=== PATIENT | female | born 1960 | race Two or more races ===

== ENCOUNTER 2018-06-29 08:07 | Day surgery (SDC) | payer MEDICAID ==
[2018-06-29] VITALS (13 sets, daily range): BP systolic 118–144; BP diastolic 70–88; PULSE 96–111; RESP 12–20
[~2018-06-29 08:07] MED LIST: SEVOFLURANE 15 MIN ONE
[2018-06-29] MEDS ORDERED: SOD CHLORIDE 0.9% 1,000 ML IV SCH (09:00)
[2018-06-29] MEDS ORDERED: CEFAZOLIN 2 GM/50 ML (PMX) 50 ML IVPB ONE (09:00)
[2018-06-29] MEDS ORDERED: GLIP10TA14 PO (10:52)
[2018-06-29] MEDS ORDERED: METF100010 PO (10:52)
[2018-06-29] MEDS ORDERED: LORA10TA3 PO (10:53)
[2018-06-29] MEDS ORDERED: ATOR20TA38 PO (10:53)
[2018-06-29] MEDS ORDERED: INSU100I27 SQ (10:53)
[2018-06-29] MEDS ORDERED: DOCU100T PO (10:54)
[2018-06-29] MEDS ORDERED: SITA100T11 PO (10:55)
[2018-06-29] MEDS ORDERED: LISI10TA2 PO (10:55)
[2018-06-29] MEDS ORDERED: LEVO50TA71 PO (10:55)
--- NOTE | 2018-06-29 14:13 | PREAC ---
Date/Time of Note Date/Time of Note DATE: 06/29/18 TIME: 14:13 Anesthesia Eval and Record Evaluation Time Pre-Procedure Interview DATE: 06/29/18 TIME: 14:13 Age 58 Sex female NPO: 8 hrs Preoperative diagnosis Left breast ductal CA in situ Planned procedure Left needle directed partial mastectomy Past Medical History Past Medical History: Includes Cardio: HTN, Dyslipidemia Endo: Diabetes, Hypothyroid Surgery & Anesthesia Issues No known issue Meds Anticoagulation: No Beta Michell within 24 hr: No Reason Beta Michell not given: Pt. not on B-Michell Reported Medications Lisinopril* (Lisinopril*) 10 Mg Tablet, 10 MG PO DAILY, #30 TAB 06/29/18 Sitagliptin* (Januvia*) 100 Mg Tablet, 100 MG PO DAILY, #30 TAB 06/29/18 Levothyroxine Sodium* (Levoxyl*) 50 Mcg Tablet, 50 MCG PO BEFORE BREAKFAST, #30 TAB 06/29/18 Docusate Sodium* (Dok*) 100 Mg Tablet, 100 MG PO BID, #60 CAP 06/29/18 Atorvastatin Calcium* (Atorvastatin Calcium*) 20 Mg Tablet, 20 MG PO QHS, #30 TAB 06/29/18 Loratadine* (Loratadine*) 10 Mg Tablet, 10 MG PO DAILY, #30 TAB 06/29/18 Insulin Detemir (Levemir Flextouch) 100 Unit/1 Ml Insuln.pen, 20 UNIT SQ QHS, EA 06/29/18 Metformin Hcl* (Metformin Hcl*) 1,000 Mg Tablet, 1000 MG PO WITH BREAKFAST DINNE, #60 TAB 06/29/18 Glipizide* (Glipizide*) 10 Mg Tablet, 20 MG PO BID, TAB 06/29/18 Current Medications Sodium Chloride 1,000 ml @ 75 mls/hr [id number] IV ; Start 06/29/18 at 09:00; Stop 06/29/18 at 22:19 Meds reviewed: Yes Allergies Coded Allergies: No Known Allergy (Unverified , 06/29/18) Allergies Reviewed: Yes Labs/Studies Labs Reviewed: Reviewed by anesthesiologist test: Negative Pre-procedure Exam Last vitals Vital Signs Date Temp Pulse Resp B/P (MAP) Pulse Ox O2 O2 Flow FiO2 Time Delivery Rate 06/29/18 97.2 111 18 128/73 100 Room Air 11:55 (91) Airway: Adequate mouth opening Mallampati: Mallampati I Teeth: Normal Lung: Normal Heart: Normal ASA Physical Status ASA physical status: 2 Emergency: None Planned Anesthetic General/MAC: LMA Planned Pain Management Parenteral pain med Pre-operative Attestations Prior to commencing anesthesia and surgery, the patient was re-evaluated, there was verification of: *The patient's identity *The results of appropriate recent lab work and preoperative vital signs *The above evaluation not changing prior to induction *Anesthetic plan, risk benefits, alternative and complications discussed with patient/family; questions answered; patient/family understands, accepts and wishes to proceed. OWEN ALATORRE MD Jun 29, 2018 14:13
[2018-06-29] MEDS ORDERED: LIDOCAINE 2% (SDV) 5 ML INJ ONE (14:25)
[2018-06-29] MEDS ORDERED: PROPOFOL 20 ML ONE (14:25)
[2018-06-29] MEDS ORDERED: CEFAZOLIN 1 GM INJ ONE (14:25)
[2018-06-29] MEDS ORDERED: MEPERIDINE 100 MG INJ ONE (14:25)
[2018-06-29] MEDS ORDERED: METOCLOPRAMIDE 10 MG INJ ONE (14:26)
[2018-06-29] MEDS ORDERED: ONDANSETRON 4 MG INJ ONE (14:26)
[2018-06-29] MEDS ORDERED: MIDAZOLAM 1 MG/ML 2 ML INJ IV PRN (15:00)
[2018-06-29] MEDS ORDERED: MEPERIDINE 25 MG INJ IV PRN (15:00)
[2018-06-29] MEDS ORDERED: METOCLOPRAMIDE 10 MG INJ IV PRN (15:00)
[2018-06-29] MEDS ORDERED: EPHEDrine SULFATE 50 MG/5 ML SYG IV PRN (15:00)
[2018-06-29] MEDS ORDERED: FENTAnyl 50 MCG/ML VIAL IV PRN ×3 (15:00)
[2018-06-29] MEDS ORDERED: hydrALAzine 20 MG INJ IV PRN (15:00)
[2018-06-29] MEDS ORDERED: LABETALOL HCL 20MG INJ IV PRN (15:00)
[2018-06-29] MEDS ORDERED: HYDROmorphONE 1 MG/5 ML IV SYRINGE IV PRN ×3 (15:00)
[2018-06-29] MEDS ORDERED: ONDANSETRON 4 MG INJ IV PRN (15:00)
[2018-06-29] MEDS ORDERED: DIPHENHYDRAMINE 50 MG INJ IV PRN (15:00)
[2018-06-29] MEDS ORDERED: OXYCODONE/ACETAMINOPHEN (5/325) TAB PO PRN ×2 (15:00)
--- NOTE | 2018-06-29 15:12 | SIPON ---
Date/Time of Note Date/Time of Note DATE: 06/29/18 TIME: 15:11 Operative Report Preoperative Diagnosis DCIS right breast Postoperative Diagnosis Same Operation/Procedure Performed Right needle directed partial mastectomy Surgeon see signature line activities assistant Dr Peters Anesthesia: general Estimated blood loss: 10 - 50 ml's Transfusion Required none Specimen Right partial mastectomy specimen Grafts/Implants none Complications none DEEP ASH MD Jun 29, 2018 15:12
--- NOTE | 2018-06-29 15:21 | OPR ---
DATE OF OPERATION: 06/29/2018 PREOPERATIVE DIAGNOSIS: Ductal carcinoma in situ, right breast. POSTOPERATIVE DIAGNOSIS: Ductal carcinoma in situ, right breast. OPERATION PERFORMED: Right needle-directed partial mastectomy. ANESTHESIA: General. ANESTHESIOLOGIST: Lloyd Arshad MD SURGEON: Rene Bills MD SALESPERSON BURIAL PLOTS: Shola Peters MD INDICATIONS FOR PROCEDURE: The patient is a 58-year-old female who underwent screening mammography w ho was found to have suspicious microcalcifications in her right breast. Subsequent biopsy confirmed ductal carcinoma in situ and needle-directed excisional biopsy was recommended. The patient consent ed and was scheduled for surgery. DESCRIPTION OF PROCEDURE: On the morning of surgery, the patient presented to [facility] where she underwent localization of the lesion performed by attending radiologist, Dr. Tyrone Schilling. Subsequently, she was brought to the operating theater, placed under general a nesthesia. The right breast was prepped and draped in usual sterile fashion. A curvilinear incision was made in the region of the previously placed localization wire which was in the central portion o f the breast approximately 3 to 4 cm above the nipple areolar complex. Subcutaneous tissue was disse cted with cautery. The skin edges were then elevated with skin hooks and wide circumferential dissec tion of the tissue associated with the wire then took place. Specimen was elevated, transected, orie nted and sent for radiographic confirmation of capture. Capture was confirmed. It was then sent for permanent pathologic analysis. The wound was irrigated. Minimal bleeding was controlled with caute ry. The skin was then reapproximated with a deep dermal layer, 4-0 Vicryl sutures in interrupted fas hion, followed by final skin approximation with 5-0 PDS sutures in subcuticular fashion and Dermabond was then applied. The patient tolerated the procedure well. The estimated blood loss was approxima tely 20 mL. There were no complications and the patient was transported in stable condition to the r ecovery room where a circumferential compression dressing was applied. Dictated By: RENE YE/NICKY Conf#: [id number] DID#: [id number]
[2018-06-29] MEDS ORDERED: HYDROCODONE/APAP (7.5/325) TAB PO PRN (15:30)
--- NOTE | 2018-06-29 16:00 | PAC ---
Date/Time of Note Date/Time of Note DATE: 06/29/18 TIME: 15:59 Post-Anesthesia Notes Post-Anesthesia Note Last documented vital signs Vital Signs Date Temp Pulse Resp B/P (MAP) Pulse Ox O2 O2 Flow FiO2 Time Delivery Rate 06/29/18 97.2 111 18 128/73 100 Room Air 11:55 (91) Temp: 98.4, Pulse: 101, Resp: 16, BP: 118/72, Pulse Ox: 92 Activity: WNL Respiratory function: WNL Cardiovascular function: WNL Mental status: Baseline Pain reasonably controlled: Yes Hydration appropriate: Yes Nausea/Vomiting absent: Yes OWEN ALATORRE MD Jun 29, 2018 16:00
== END 2018-06-29 17:58 | disposition home or self-care (01) ==
LOC: SDS 08:07
PROVIDERS: ATTEND Surgery Surgical Oncology
DX: D05.11 Intraductal carcinoma in situ of right breast (principal); I10 Essential (primary) hypertension; E78.00 Pure hypercholesterolemia, unspecified; E11.9 Type 2 diabetes mellitus without complications; E78.2 Mixed hyperlipidemia
CPT/HCPCS: 19301; 82962; J0690; J2175; J2405; J2765; J3010; Z7512; Z7610; 88307